=== PATIENT | female | born 2000 | race Caucasian/White ===

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

== ENCOUNTER 2024-01-08 11:38 | Outpatient (CLI) | payer BC, SELFPAY ==
--- OUTSIDE RECORDS SUMMARY | 2024-01-09 10:15 | XMS_ITS | Clinical Summary ---
Author Organization [facility] Address [address] [place] [address] Care Team Providers Care Bone Worker Name Role Phone Clinic, [facility] Primary Care Provider Allergies Active Allergy Reactions Criticality Noted Date Comments Codeine 08/25/2009 itch Latex 02/13/2017 Shrimp 07/11/2019 Medications Medication Sig Dispensed Refills Start Date End Date Status norgestim-eth estrad triphasic (ORTHO TRI-CYCLEN) 0.18/0.215/0.25 MG-35 MCG tablet TAKE 1 TABLET BY MOUTH DAILY 09/19/2018 Active sertraline (ZOLOFT) 25 MG tabletIndications:A nxiety Take 1 tablet by mouth daily at 2 pm 07/20/2022 Active levonorgestrel (KYLEENA) 19.5 MG IUD 1 each by Intrauterine route once Active Active Problems Problem Noted Date Diagnosed Date Concussion without loss of c onsciousness, subsequent encounter 07/26/2019 Seasonal allergies Immunizations Name Administration Dates Next Due DTAP (<7y) 07/19/2006, 4,2002,2002, HEPA 01/20/2008,03/21/2007 HIB (PRP-T) 08/03/2003,2002,2002 HepB 02/25/2003,2002,2002 Influenza (IIV3) PF 02/17/2009 MMR 07/19/2006,05/06/2003 Meningococcal (Menomune??) 01/05/2014 Poliovirus, inactivated (IPV) 07/19/2006, 003,2002,2002 TDAP (Adacel,Boostrix) 01/05/2014 Varicella 04/08/2007,02/25/2003 Family History Medical History Relation Comments Family History Negative Father Family History Negative Mother Family History Negative Sister 1 Relation Status Comments Father Alive Mother Alive Sister Social History Tobacco Use Types Packs/Day Years Used Date Smoking Tobacco: Never Smokeless Tobacco: Never Tobacco Cessation:Counseling Given: Not Answered Comments:non smoking house Alcohol Use Standard Drinks/Week Comments No 0 (1 standard drink = 0.6 oz pur e alcohol) Adolescent Education Answer Date Record ed Getting School Help Needed Not on file 03/21 Sex and Gender Information Value Date Recorded Sex Assigned at Not on file Gender Identity Not on file Sexual Orientation Not on file Last Filed Vital Signs Vital Sign Reading Time Taken Comments Blood Pressure 107/66 07/28/2022 11:26 AM CERTIFIED NEURODIAGNOSTIC TECHNOLOGIST Pulse 80 07/28/2022 11:26 AM CERTIFIED NEURODIAGNOSTIC TECHNOLOGIST Temperature 37.3 ??C (99.1 ??F) 07/28/2022 11:[address] Respiratory Rate 20 07/28/2022 11:26 AM CERTIFIED NEURODIAGNOSTIC TECHNOLOGIST Oxygen Saturation 97% 07/28/2022 11:26 AM CERTIFIED NEURODIAGNOSTIC TECHNOLOGIST Inhaled Oxygen Concentration - - Weight 51.3 kg (113 lb) 07/26/2019 10:26 AM CERTIFIED NEURODIAGNOSTIC TECHNOLOGIST Height 160 cm (5' 3) 07/26/2019 10:26 AM CERTIFIED NEURODIAGNOSTIC TECHNOLOGIST Body Mass Index 20.02 07/26/2019 10:26 AM CERTIFIED NEURODIAGNOSTIC TECHNOLOGIST Plan of Treatment Health Maintenance Due Date Last Done Comments ADVANCE CARE PLANNING 2002 ANNUAL REVIEW OF HM ORDERS 2002 CHLAMYDIA SCREENING 2002 YEARLY PREVENTIVE VISIT 2002 HIV SCREENING 2017 HPV IMMUNIZATION (1 - 3-dose series) 2017 HEPATITIS C SCREENING 02/07/2020 COVID-19 Vaccine ( season) 2023 03/01/2021, 02/08/2021 PAP 2023 PHQ-2 (once per calendar year) 2023 DTAP/TDAP/TD IMMUNIZATION (7 - Td or Tdap) 01/06/2024 01/05/2014, 07/19/2006, 07/19/2006, Additional history exists INFLUENZA VACCINE (#1) 2024 0, 04/13/2010, 02/17/2009, Additional history exists HEPATITIS B IMMUNIZATION Completed 003, 02/25/2003, 02/25/2003, Additional history exists IPV IMMUNIZATION Completed 07/19/2006, , 2002, Additional history exists MENINGITIS IMMUNIZATION Aged Out 10/06/19 22, 01/05/2014, 01/05/2014, Additional history exists No longer eligible based on patient's age to complete this topic Pneumococcal Vaccine: Pediatrics (0 to 5 Years) and At-Risk Patients (6 to 64 Years) Aged Out No longer eligible based on patient's age to complete this topic RSV MONOCLONAL ANTIBODY Aged Out No l onger eligible based on patient's age to complete this topic Care Teams Bone Worker Relationship Specialty Start Date End Date Clinic, [facility] [address] [facility] [place] [address] PCP - General 07/08/19
--- OUTSIDE RECORDS SUMMARY | 2024-01-09 10:15 | XMS_ITS | Clinical Summary ---
Author Organization [facility] Address [address] [place] [address] Care Team Providers Care Passenger Coach Driver Name Role Phone Needs Pcp, Assignment Primary Care Provider [phone] Source Comments You are receiving this document as you are listed as the primary care provider,follow-up provider, or the patient has been referred to you for consultation.This is in compliance with the Medicare and[facility] EHR Incentive Program,which states Providers who transition their patient to another setting of careor provider of care or refers their patient to another provider of care shouldprovide summary care record for each transition of care or referral. [facility]out Allergies Active Allergy Reactions Criticality Noted Date Comments Codeine Itching 06/24/2015 Latex 02/13/2017 Medications Medication Sig Dispensed Refills Start Date End Date Status ibuprofen (AKA ADVIL) 100 MG/5ML suspension Take by mouth 3 TIMES A WEEK PRN for Pain. 06/24/2015 Active triamcinolone acetonide (KENALOG) 0.1 % ointmentIndications :Acne vulgaris Apply topically two times a day. To dry skin spots on body 15 g 1 07/10/2017 Active Acetylcysteine (N-NMTYGF-A-CYSTEIN E OR) Active hydrocortisone 2.5 % ointmentIndications :Dermatitis Apply to eczema twice daily until resolved. Ok to use on face, armpits and groin. 30 g 3 03/11/2019 Active ISOtretinoin (AMNESTEEM) 20 MG capsule Take 1 Capsule by mouth daily. With dinner. Ipledge [id number] 30 Capsule 05/20/2019 Active TRI-SPRINTEC 0.18/0.215/0.25 MG-35 MCG tabletIndications:A cne vulgaris TAKE 1 TABLET BY MOUTH DAILY 84 Tablet 3 11/17/2019 Active Active Problems No known active problems Social History Tobacco Use Types Packs/Day Years Used Date Smoking Tobacco: Never Smokeless Tobacco: Never Sex and Gender Information Value Date Recorded Sex Assigned at Not on file Gender Identity Not on file Sexual Orientation Not on file Last Filed Vital Signs Vital Sign Reading Time Taken Comments Blood Pressure - - Pulse - - Temperature 37.2 ??C (99 ??F) 10/13/2017 6:12 PM CDT Respiratory Rate - - Oxygen Saturation - - Inhaled Oxygen Concentration - - Weight 49.9 kg (110 lb) 12/31/2018 10:04 AM CDT Height 160 cm (5' 3) 12/13/2018 10:56 AM CDT Body Mass Index - - Plan of Treatment Health Maintenance Due Date Last Done Comments Cervical Cancer Screening Due 2002 Chlamydia 2002 Hep C Screening (Preventive Services) 2002 HPV Vaccine (1 - 3-dose series) 2017 HIV Screening (Preventive Services) 2018 Adult Preventive Visit 02/07/2020 HepB (1) 2021 COVID-19 Vaccine ( season) 2023 03/01/2021, 02/08/2021 DTaP/Tdap/Td (7 - Tdap) 01/06/2024 01/06/20 14, 07/19/2006, 08/03/2003, Additional history exists Influenza (#1) 2024 04/13/2010, 02/17/2009 Zoster/Shingles (1 of 2) 02/07/2052 Hib Completed 08/03/2003, 02/03, 2002, Additional history exists IPV (Polio) Completed 07/19/2006, 11/2002, 2002, Additional history exists HepA Completed 01/20/2008, 03/21/2007 MCV4 Aged Out 01/05/2014 No longer eligi ble based on patient's age to complete this topic Pneumococcal Aged Out No longer eligi ble based on patient's age to complete this topic Care Teams Passenger Coach Driver Relationship Specialty Start Date End Date Needs Pcp, [place] [address] PCP - General 12/14/16
--- OUTSIDE RECORDS SUMMARY | 2024-01-09 10:15 | XMS_ITS | Patient Health Record ---
Author Organization [facility] Address [address] [place] [address] Care Team Providers Care Deaf Interpreter Name Role Phone None, No PCP Primary Care Provider Dianna Marques Unavailable Allergies Allergen (clinical drug ingredient) Drug/Non Drug Allergy documented on EMR Reaction Allergy Type Onset Date Status codeine Codeine Unknown Drug Allergy Active Reason For Referral No Information Medications Medication SIG (Take, Route, Frequency, Duration) Notes Start Date End Date Status Sertraline HCl 25 MG 1 tablet Orally Once a day Active Norgestim-Eth Estrad Triphasic 0.18/0.215/0.25 MG-35 MCG 1 tablet Orally Once a day Not-Taking Kyleena 19.5 MG as directed Intrauterine inserted in 2020 Active Social History Tobacco Use: Social History Observation Description Date Details (start date - stop date) Never Smoker NA - NA Tobacco Use/Smoking Question Answer Notes Are you a nonsmoker Alcohol Screen (Audit-C) Question Answer Notes Did you have a drink containing alcohol in the p ast year? Yes Points 0 Interpretation Negative Problems Problem Type SNOMED Code ICD Code Onset Dates Problem Status W/U Status Risk Notes Problem Abnormal vaginal bleeding (699042571) DUB (dysfunctional uterine bleeding) (N93.8) Active confirmed Problem Irregular periods (48508219) Irregular periods (N92.6) Active confirmed Problem Anemia (284686888) Anemia (D64.9) Active confirmed Plan Of Treatment No Information Insurance Providers Payer Name Payer Address Payer Phone Subscriber Number Group Number Insured Name Patient Relationship to Insured Coverage Start Date Coverage End Date BCBS - (Client Bill) [address] [place] [address] [id number] Bere Montez Self - patient is the insured Medical (General) History Medical History History ICD Code Seasonal Allergies Nervous and Auditory Anxiety / Depression Bleeding Problems Anemia Ovarian Cysts Surgical History Surgery Date(Month/Year) tonsillectomy and adenoidectomy [place] Teeth Removed
--- OUTSIDE RECORDS SUMMARY | 2024-01-09 10:15 | XMS_ITS | Referral Summary ---
Author Organization [facility] Address [address] [place] [address] Care Team Providers Care Lift Operator Name Role Phone Clinic, [facility] Primary Care Provider Allergies Active Allergy [...] 07/19/2006, 003,2002,2002 TDAP (Adacel,Boostrix) 01/05/2014 Varicella 04/08/2007,02/25/2003 Social History Tobacco Use Types Packs/Day Years [...] Comments Blood Pressure 107/66 07/28/2022 11:26 AM CUSTOMS COMPLIANCE SPECIALIST Pulse 80 07/28/2022 11:26 AM CUSTOMS COMPLIANCE SPECIALIST Temperature 37.3 ??C (99.1 ??F) 07/28/2022 11:[address] Respiratory Rate 20 07/28/2022 11:26 AM CUSTOMS COMPLIANCE SPECIALIST Oxygen Saturation 97% 07/28/2022 11:26 AM CUSTOMS COMPLIANCE SPECIALIST Inhaled Oxygen Concentration - - Weight 51.3 kg (113 lb) 07/26/2019 10:26 AM CUSTOMS COMPLIANCE SPECIALIST Height 160 cm (5' 3) 07/26/2019 10:26 AM CUSTOMS COMPLIANCE SPECIALIST Body Mass Index 20.02 07/26/2019 10:26 AM CUSTOMS COMPLIANCE SPECIALIST Plan of Treatment Not on file Care Teams Lift Operator Relationship Specialty Start Date End Date Clinic, [facility] [address] [place] [address] PCP - General 07/08/19
== END 2024-01-08 11:39 | disposition home or self-care (01) ==
LOC: NFLDREF 01-09 10:13
PROVIDERS: PCP Family Medicine; Referring Provider Family Medicine; Visit Provider Physician Assistant
DX: R30.0 Dysuria (principal); N39.0 Urinary tract infection, site not specified
CPT/HCPCS: 87086

== ENCOUNTER 2024-05-24 21:42 | Emergency (ER) | payer BC, SELFPAY ==
--- OUTSIDE RECORDS SUMMARY | 2024-05-24 21:45 | XMS_ITS ---
Author Organization [facility] Address [address] [place] [address] Care Team Providers Care Clinical Application Specialist Name Role Phone None, No PCP Primary Care Provider Unavailabl Dianna Rivas Unavailable Josse Andresvasyl Unavailable [phone] REASON FOR VISIT Check ovarian Cysts Medications Medication SIG (Take, Route, Frequency, Duration) Notes Start Date End Date Status Sertraline HCl 25 MG 1 tablet Orally Once a day Active Norgestim-Eth Estrad Triphasic 0.18/0.215/0.25 MG-35 MCG 1 tablet Orally Once a day A ctive Kyleena 19.5 MG as directed Intrauterine Active Encounters Encounter Location Date Provider Diagnosis [facility] [address] [place] [address] 01/03/2023 Jered Andres Pelvic pain R10.2 Assessments Encounter Date Diagnosis (ICD Code) Assessment Notes Treatment Notes Treatment Clinical Notes Section Notes 01/03/2023 Pelvic pain (ICD-10 - R10.2) Plan Of Treatment No Information Progress Notes * Bere DIAZDOB: [birth year] (22 yo F)Acc No.[id number]:01/03/2023 Patient: Raudel haynesBere Provider: Amy Andres MD :2000 A ge:22 Y S ex:Female Date:01/03/2023 Address: [facility] Pcp:No PCP None Subjective: * Chief Complaints: * 1 . Check ovarian Cysts. * Medical History: * Medications: T aking Sertraline HCl 25 MG Tablet 1 tablet Orally Once a day, Taking Norgestim- Eth Estrad Triphasic 0.18/0.215/0.25 MG-35 MCG Tablet 1 tablet Orally Once a day, Taking Kyleena 19.5 MG Intrauterine Device as directed Intrauterine Objective: Assessment: * Assessment: 1. P elvic pain - R10.2 (Primary) Plan: * Treatment: * Procedure Codes: 7 6856 US EXAM, PELVIC, COMPLETE,FULL ATM TECHNICIAN, 08624 TRANSVAGINAL US, NON-OB * Images: Billing Information: * Visit Code: * Procedure Codes: 73658 US EXAM, PELVIC, COMPLETE,FULL ATM TECHNICIAN. 79432 TRANSVAGINAL US, NON-OB. * Sign off status: Completed true * Provider: Amy Andres MD Date: 0 01/03/2023 Generated for Kimi tolbert/Maureen/Sarahi on: 07/25/2023 09:45 PM CHILDRENS CLUB ATTENDANT
--- OUTSIDE RECORDS SUMMARY | 2024-05-24 21:45 | XMS_ITS ---
Author Organization [facility] Address [address] [place] [address] Care Team Providers Care Commercial Housekeeper Name Role Phone None, No PCP Primary Care Provider UnavailDianna Lr Unavailable [phone] Jered Andres Unavailable [phone] Allergies Allergen (clinical drug ingredient) Drug/Non Drug Allergy documented on EMR Reaction Allergy Type Onset Date Status codeine Codeine Unknown Drug Allergy Active REASON FOR VISIT MASON APPRENTICE Consult: Ovarian Cysts / US Prior PHQ9, BC: Kyleena, inserted 2020. LMP: 11/29/22., Sx: Pt iscurrently not in any pain. Pt thinks shes been getting ovarian cysts for the past 2-3 years. Thinksone ruptured last year., Seek care elsewhere: No., [facility] Medications Medication SIG (Take, Route, Frequency, Duration) Notes Start Date End Date Status Norgestim-Eth Estrad Triphasic 0.18/0.215/0.25 MG-35 MCG 1 tablet Orally Once a day Not-Taking Sertraline HCl 25 MG 1 tablet Orally Once a day Active Kyleena 19.5 MG as directed Intrauterine inserted [...] Status Risk Notes Problem Abnormal vaginal bleeding (030351862) DUB (dysfunctiona l uterine bleeding) (N93.8) Active confirmed Problem Anemia (148846625) Anemia (D64.9) Active confirmed Vital Signs Blood pressure systolic 98 mm Hg 01/04/20 23 Blood pressure diastolic 62 mm Hg 023 Height 63 in 01/03/2023 Weight 103.8 lbs 01/03/2023 BMI 18.39 kg/m2 01/03/2023 Encounters Encounter Location Date Provider Diagnosis [facility] [address] [place] [address] 01/03/2023 Jered Andres DUB (dysfunctional uterine bleeding) N93.8 and Anemia D64.9 Assessments Encounter Date Diagnosis (ICD Code) Assessment Notes Treatment Notes Treatment Clinical Notes Section Notes 01/03/2023 DUB (dysfunctional uterine bleeding) (ICD-10 - N93.8) patient may need to consider removing IUD if bleeding becomes more prolific 01/03/2023 Anemia (ICD-10 - D64.9) patient may need to consider removing IUD if bleeding becomes more prolific 01/03/2023 Other 30 minutes spen t on the date of the encounter doing chart review, history and exam, documentation and further activities per the note patient may need to consider removing IUD if bleeding becomes more prolific Plan Of Treatment Treatment Notes Assessment Notes Other 30 minutes spent on the date of the encounter doing chart review, history and exam, documentation and further activities per the note Progress Notes * Bere DIAZDOB: [birth year] (22 yo F)Acc No.[id number]:01/03/2023 Patient: Bere Parker Provider: Amy Andres MD :2000 A ge:22 Y S ex:Female Date:01/03/2023 Address:[address] [place], [place] [id number] Pcp:No PCP None Subjective: * Chief Complaints: * N P Consult: Ovarian Cysts / US Prior PHQ9BC: Kyleena, inserted 2020. LMP: 11/29/22.Sx: Pt is currently not in any pain. Pt thinks shes been getting ovarian cysts for the past 2-3 years. Thinks one ruptured last year.Seek care elsewhere: [place] [place] * HPI: D epression Screening: PHQ-9 L ittle interest or pleasure in doing things?Not at all F eeling down, depressed, or hopeless N ot at all T rouble falling or staying asleep, or sleeping too much M ore than half the days F eeling tired or having little energy M ore than half the days P oor appetite or overeating N ot at all F eeling bad about yourself or that you are a failure, or have let yourself or your family down M ore than half the days T rouble concentrating on things, such as reading the newspaper or watching television S everal days M oving or speaking so slowly that other people could have noticed; or the opposite, being so fidgety or restless that you have been moving around a lot more than usual N ot at all T houghts that you would be better off or of hurting yourself in some way N ot at all T otal Score 7 I nterpretation M ild Depression 22-year-old patient seen for irregular spotting. She had menarche at age 17. She had very heavy cycles and a kyleena IUD was placed. She was amenorrhea for one year. Of note she has a history of an amiable one year ago or hemoglobin was 11.9. She is no red meat and has been on no iron supplements. She is now bleeding lightly for seven days. 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 B ir Control: Diane lujan, inserted in 2020. S exual Activity C urrently sexually active. S exually Tranmitted Disease (STD) N one. A bnormal Pap Smear N ever Had One. * OB History: G PAL: G 0. * Surgical History: t onsillectomy and adenoidectomy [place] Teeth Removed * Hospitalization/Major Diagno stic Procedure: D enies Past Hospitalization * Family History: Breast Cancer: Maternal Grandmother H ypertension: Father. * Social History: T obacco Use: T obacco Use/Smoking A re you a n onsmoker D rugs/Alcohol: D rugs H ave you used drugs other than those for medical reasons in the past 12 months? N o Alcohol Screen (Audit-C) D id you have a drink containing alcohol in the past year? Y es P oints 0 I nterpretation N egative Caffeine I ntake: 1 drink, daily Do you smoke marijuana?: Denies. Do you drink alcohol?: 3 drinks, 3 times monthly. * Medications: T akingSertraline HCl 25 MG Tablet 1 tablet Orally Once a dayKyleena 19.5 MG Intrauterine Device as directed Intrauterine , Notes: inserted in 2020Taking Sertraline HCl 25 MG Tablet 1 tablet Orally Once a dayTaking Kyleena 19.5 MG Intrauterine Device as directed Intrauterine , Notes: inserted in 5663Mhp-YqvzpoJbdszuync-Ehl Estrad Triphasic 0.18/0.215/0.25 MG-35 MCG Tablet 1 tablet Orally Once a dayMedication List reviewed and reconciled with the patientNot-Taking Norgestim-Eth Estrad Triphasic 0.18/0.215/0.25 MG-35 MCG Tablet 1 tablet Orally Once a dayMedication List reviewed and reconciled with the patient * Allergies: Rashard silverio[Allergies Verified] Objective: * Vitals: H t: 63 in, Wt:103.8 lbs, BP:98/62 mm Hg, BMI:18.39 Index, Wt-k.08 kg. * Examination: * General Examination: GENERAL APPEARANCE: i n no acute distress, well developed, well nourished. ABDOMEN: n ormal, bowel sounds present, soft, nontender, nondistended. EDM OPERATOR: l abia without lesions or masses, vaginal mucosa pink, no lesions, cervix without lesions, nontender, uterus anteverted, non tender, adnexa nontender, perineum within normal limits, anus within normal limits. NEUROLOGIC: n onfocal, motor strength normal upper and lower extremities, sensory exam intact. PSYCH: a lert, oriented, judgement and insight good, mood/affect full range, speech clear. n ormal general and EDM OPERATOR exam IUD strings present. Assessment: * Assessment: 1. D UB (dysfunctional uterine bleeding) - N93.8 (Primary) 2 . A nemia - D64.9 patient may need to consider removing IUD if bleeding becomes more prolific. Plan: * Treatment: * Procedure Codes: 9 6127 BRIEF EMOTIONAL/BEHAV ASSMT * Preventive Medicine: YOUR PREVENTIVE WELLNESS PLAN: B reast Cancer Screening (Mammogram): My last mammogram was done on: U nder 42yrs C ervical Cancer Screening (Pap Smear): My last Pap smear was done on: U nder 23 years old O steoporosis Screening (Bone Density Measurement): My last bone density was done on: U nder 67yr C olorectal Cancer Screening: Last Done Colonoscopy U nder 47yr D epression Screening: Screening for depression was last done on: 0 01/03/2023 * Images: Billing Information: * Visit Code: 03685 Office Visit, New Pt., Level 3. * Procedure Codes: 66482 BRIEF EMOTIONAL/BEHAV ASSMT. * Sign off status: Completed true * Provider: Amy Andres MD Date: 0 01/03/2023 Generated for Kimi tolbert/Maureen/Sarahi on: 07/25/2023 09:45 PM ONLINE MARKETING STRATEGIST History and Physical Notes * HPI (History of Present Illness) Category Sub-Category Detail Notes Category Not es Depression Screening PHQ-9 Little inte rest or pleasure in doing things: Not at all 22-year-old patient seen for irregular spotting. She had menarche at age 17. She had very heavy cycles and a kyleena IUD was placed. She was amenorrhea for one year. Of note she has a history of an amiable one year ago or hemoglobin was 11.9. She is no red meat and has been on no iron supplements. She is now bleeding lightly for seven days. Feeling down, depressed, or hopeless: No t at all Trouble falling or staying a sleep, or sleeping too much: More than half the days Feeling tired or having little energy: M ore than half the days Poor appetite or overeating: Not at all Feeling bad about yourself o r that you are a failure, or have let yourself or your family down: More than half the days Trouble concentrating on thi ngs, such as reading the newspaper or watching television: Several days Moving or speaking so slowly that other people could have noticed; or the opposite, being so fidgety or restless that you have been moving around a lot more than usual: Not at all Thoughts that you would be b hilary off or of hurting yourself in some way: Not at all Total Score: 7 Interpretation: Mild Depression Examination Category Sub-Category Detail Notes Category Not es *General Examination GENERAL APPEARANCE: in no acute distress, well developed, well nourished normal general and EDM OPERATOR exam IUD strings present ABDOMEN: normal, bowel sounds present, soft, nontender, nondistended NEUROLOGIC: nonfocal, motor stre ngth normal upper and lower extremities, sensory exam intact PSYCH: alert, oriented, min gement and insight good, mood/affect full range, speech clear EDM OPERATOR: labia without lesion s or masses, vaginal mucosa pink, no lesions, cervix without lesions, nontender, uterus anteverted, non tender, adnexa nontender, perineum within normal limits, anus within normal limits
--- OUTSIDE RECORDS SUMMARY | 2024-05-24 21:45 | XMS_ITS ---
Author Organization [facility] Address [address] [place] [address] Care Team Providers Care Sock Lining Examiner Name Role Phone None, No PCP Primary Care Provider UnavailDianna Lr Unavailable Jered Andres Unavailable [phone] Results Component Value Reference Range Notes CBC (INCLUDES DIFF/PLT) Reviewed date:01/04/2023 09:17:40 AM Interpretation: Performing Lab:BRIANNE, [facility] [address] [facility] Hospital[facility] AlonsoeIL[address] Raúl Brooks Notes/Report: WHITE BLOOD CELL COUNT 4.3 3.8-10.8 Thousand/ uL RED BLOOD CELL COUNT 4.59 3.80-5.10 Million/uL HEMOGLOBIN 13.7 11.7-15.5 g/dL HEMATOCRIT 41.9 35.0-45.0 % MCV 91.3 80.0-100.0 fL MCH 29.8 27.0-33.0 pg MCHC 32.7 32.0-36.0 g/dL RDW 11.8 11.0-15.0 % PLATELET COUNT 206 140-400 Thousand/uL MPV 11.2 7.5-12.5 fL ABSOLUTE NEUTROPHILS [phone] cells/uL ABSOLUTE LYMPHOCYTES 9944 107-5441 cells/uL ABSOLUTE MONOCYTES 361 200-950 cells/uL ABSOLUTE EOSINOPHILS 99 15-500 cells/uL ABSOLUTE BASOPHILS 52 0-200 cells/uL NEUTROPHILS 43.8 LYMPHOCYTES 44.3 MONOCYTES 8.4 EOSINOPHILS 2.3 BASOPHILS 1.2 ESTRADIOL Reviewed date:01/04/2023 09:15:30 AM Interpretation: Performing Lab:BRIANNE [facility]-[address], [place] MoFiqkWG[address] Raúl Brooks Notes/Report: ESTRADIOL 139 Reference Range Follicular Phase: 19-144 Mid-Cycle: 64-357 Luteal Phase: 56-214 Postmenopausal: < or = 31 Reference range established on post-pubertal patient population. No pre-pubertal reference range established using this assay. For any patients for whom low Estradiol levels are anticipated (e.g. males, pre-pubertal children and hypogonadal/post-menopausal females), the [facility] Estradiol, Ultrasensitive, LCMSMS assay is recommended (order code 73006). Please note: patients being treated with the drug fulvestrant (Faslodex(R)) have demonstrated significant interference in immunoassay methods for estradiol measurement. The cross reactivity could lead to falsely elevated estradiol test results leading to an inappropriate clinical assessment of estrogen status. [facility] order code 32150-Ttzgpwnat, Ultrasensitive LC/MS/MS demonstrates negligible cross reactivity with fulvestrant. PROGESTERONE Reviewed date:01/04/2023 09:15:43 AM Interpretation: Performing Lab:BRIANNE [facility]-[address], [place] GabwBE[address] Raúl Brooks Notes/Report: PROGESTERONE 11.5 Reference Ranges Female Follicular Phase < 1.0 Luteal Phase 2.6-21.5 Post menopausal < 0.5 1st Trimester 4.1-34.0 2nd Trimester 24.0-76.0 3rd Trimester 52.0-302.0 FERRITIN Reviewed date:01/04/2023 09:16:04 AM Interpretation: Performing Lab:Jerzy DECKER-[address]ef[address], [place] CallawayAvhdYH[address] Raúl Brooks Notes/Report: FERRITIN 10 16-154 ng/mL T4, FREE Reviewed date:01/04/2023 09:16:53 AM Interpretation: Performing Lab:Jerzy DECKER [address], [place] BartlettLejwTS[address] Raúl Brooks Notes/Report: T4, FREE 1.1 0.8-1.4 ng/dL TSH Reviewed date:01/04/2023 09:16:34 AM Interpretation: Performing Lab:BRIANNE [facility] [address]iny-[address], [facility] HospitalYfwbFG[address] Raúl Jass Brooks Notes/Report: TSH 1.22 Reference Range > or = 20 Years 0.40-4.50 Ranges First trimester 0.26-2.66 Second trimester 0.55-2.73 Third trimester 0.43-2.91 TESTOSTERONE, FREE Reviewed date:01/10/2023 08:16:08 AM Interpretation: Performing Lab:Z3E, [facility] [address], [address], QkhiesmknfBR[address] Janusz Graff MD Notes/Report: TESTOSTERONE, FREE 2.2 0.2-5.0 pg/mL (Note) The concentration of free testosterone is derived from a mathematical model using total testosterone by LCMSMS, sex hormone binding globulin and albumin. This test was developed and its analytical performance characteristics have been determined by [facility]. It has not been cleared or approved by the FDA. This assay has been validated pursuant to the CLIA regulations and is used for clinical purposes. [facility] [address] [address],[address] [facility] [address] Janusz rGaff MD REASON FOR VISIT Labs Medications Medication SIG (Take, Route, Frequency, Duration) Notes Start Date End Date Status Sertraline HCl 25 MG 1 tablet Orally Once a day Active Norgestim-Eth Estrad Triphasic 0.18/0.215/0.25 MG-35 MCG 1 tablet Orally Once a day Not-Taking Kyleena 19.5 MG as directed Intrauterine inserted in 2020 Active Problems Problem Type SNOMED Code ICD Code Onset Dates Problem Status W/U Status Risk Notes Problem Irregular periods (79473624) Irregular periods (N92.6) Active confirmed Encounters Encounter Location Date Provider Diagnosis [facility] [address] [place] [address] 01/03/2023 Edward Irwin Irregular periods N92.6 and Anemia, unspecified D64.9 Assessments Encounter Date Diagnosis (ICD Code) Assessment Notes Treatment Notes Treatment Clinical Notes Section Notes 01/03/2023 Irregular periods (ICD-10 - N92.6) 01/03/2023 Anemia, unspecified (ICD-10 - D64.9) Plan Of Treatment No Information Progress Notes * Bere MONTEZDOB: [birth year] (22 yo F)Acc No.[id number]:01/03/2023 Patient: Bere Parker Provider: Amy Andres MD :2000 A ge:22 Y S ex:Female Date:01/03/2023 Address:[address] [place], [place] [id number] Pcp:No PCP None Subjective: * Chief Complaints: * L abs * Medical History: * Medications: T akingSertraline HCl 25 MG Tablet 1 tablet Orally Once a dayKyleena 19.5 MG Intrauterine Device as directed Intrauterine , Notes: inserted in 2020Taking Sertraline HCl 25 MG Tablet 1 tablet Orally Once a dayTaking Kyleena 19.5 MG Intrauterine Device as directed Intrauterine , Notes: inserted in 1655Psy-OxdqciCwowcoxyg-Xup Estrad Triphasic 0.18/0.215/0.25 MG-35 MCG Tablet 1 tablet Orally Once a dayNot-Taking Norgestim-Eth Estrad Triphasic 0.18/0.215/0.25 MG-35 MCG Tablet 1 tablet Orally Once a day Objective: Assessment: * Assessment: 1. I rregular periods - N92.6 2 . A nemia, unspecified - D64.9 Plan: * Treatment: Value Reference Range W RITA BLOOD CELL COUNT 4.3 3.8-10.8 - Thousan d/uL * R ED BLOOD CELL COUNT 4.59 3.80-5.10 - Million/ uL * H EMOGLOBIN 13.7 11.7-15.5 - g/dL * H EMATOCRIT 41.9 35.0-45.0 - % * M CV 91.3 80.0-100.0 - fL * M CH 29.8 27.0-33.0 - pg * M CHC 32.7 32.0-36.0 - g/dL * R DW 11.8 11.0-15.0 - % * P LATELET COUNT 206 140-400 - Thousand/u L * N EUTROPHILS 43.8 - % * A BSOLUTE NEUTROPHILS 1883 2878-6220 - cells/uL * L YMPHOCYTES 44.3 - % * A BSOLUTE LYMPHOCYTES [phone] - cells/uL * M ONOCYTES 8.4 - % * A BSOLUTE MONOCYTES 361 200-950 - cells/uL * E OSINOPHILS 2.3 - % * A BSOLUTE EOSINOPHILS 99 15-500 - cells/uL * B ASOPHILS 1.2 - % * A BSOLUTE BASOPHILS 52 0-200 - cells/uL * M PV 11.2 7.5-12.5 - fL ?LAB: ESTRADIOL* Value Reference Range E STRADIOL 139 - pg/mL ?LAB: PROGESTERONE* Value Reference Range P ROGESTERONE 11.5 - ng/mL ?LAB: FERRITIN ?LAB: T4, FREE* Value Reference Range T 4, FREE 1.1 0.8-1.4 - ng/dL ?LAB: TSH* Value Reference Range T SH 1.22 - mIU/L ?LAB: TESTOSTERONE, FREE2.?Anemia, unspecified?LAB: CBC (INCLUDES DIFF/PLT)* Value Reference Range W RITA BLOOD CELL COUNT 4.3 3.8-10.8 - Thousan d/uL * R ED BLOOD CELL COUNT 4.59 3.80-5.10 - Million/ uL * H EMOGLOBIN 13.7 11.7-15.5 - g/dL * H EMATOCRIT 41.9 35.0-45.0 - % * M CV 91.3 80.0-100.0 - fL * M CH 29.8 27.0-33.0 - pg * M CHC 32.7 32.0-36.0 - g/dL * R DW 11.8 11.0-15.0 - % * P LATELET COUNT 206 140-400 - Thousand/u L * N EUTROPHILS 43.8 - % * A BSOLUTE NEUTROPHILS 1883 2822-0506 - cells/uL * L YMPHOCYTES 44.3 - % * A BSOLUTE LYMPHOCYTES 7416 348-0169 - cells/uL * M ONOCYTES 8.4 - % * A BSOLUTE MONOCYTES 361 200-950 - cells/uL * E OSINOPHILS 2.3 - % * A BSOLUTE EOSINOPHILS 99 15-500 - cells/uL * B ASOPHILS 1.2 - % * A BSOLUTE BASOPHILS 52 0-200 - cells/uL * M PV 11.2 7.5-12.5 - fL ?LAB: ESTRADIOL* Value Reference Range E STRADIOL 139 - pg/mL ?LAB: PROGESTERONE* Value Reference Range P ROGESTERONE 11.5 - ng/mL ?LAB: FERRITIN ?LAB: T4, FREE* Value Reference Range T 4, FREE 1.1 0.8-1.4 - ng/dL ?LAB: TSH* Value Reference Range T SH 1.22 - mIU/L ?LAB: TESTOSTERONE, FREE * Procedure Codes: 8 5025 COMPLETE CBC W/AUTO DIFF WBC, Modifiers: 90 79071 ASSAY THYROID STIM HORMONE, Modifiers: 90 23103 ASSAY OF FREE THYROXINE, Modifiers: 90 33141 ASSAY OF ESTRADIOL, Modifiers: 90 42146 ASSAY OF TESTOSTERONE, Modifiers: 90 36329 ASSAY OF FERRITIN, Modifiers: 90 93026 ASSAY OF PROGESTERONE, Modifiers: 90 * Images: Billing Information: * Visit Code: * Procedure Codes: 58490 COMPLETE CBC W/AUTO DIFF WBC. Modifiers: 90 99500 ASSAY THYROID STIM HORMONE. Modifiers: 90 84754 ASSAY OF FREE THYROXINE. Modifiers: 90 50814 ASSAY OF ESTRADIOL. Modifiers: 90 39072 ASSAY OF TESTOSTERONE. Modifiers: 90 34485 ASSAY OF FERRITIN. Modifiers: 90 93067 ASSAY OF PROGESTERONE. Modifiers: 90 * Sign off status: Completed Addendum: * true * Provider: Amy Andres MD Date: 0 01/03/2023 Generated for Lashai ng/Faxing/eTransmitting on: 1 07/25/2023 09:44 PM SUPER[employer]OR [employer]
[2024-05-24 21:46] VITALS: BP 117/79; PULSE 122; RESP 16; TEMP 37.5; O2SAT 97; BMI 19.8
--- OUTSIDE RECORDS SUMMARY | 2024-05-24 21:46 | XMS_ITS | Patient Health Record ---
Author Organization [facility] Address [address] [place] [address] Care Team Providers Care Cable Mock Up Assembler Name Role Phone None, No PCP Primary [...] Status Risk Notes Problem Abnormal vaginal bleeding (540543129) DUB (dysfunctional uterine bleeding) (N93.8) Active confirmed Problem Irregular periods (02094802) Irregular periods (N92.6) Active confirmed Problem Anemia (229316097) Anemia (D64.9) Active confirmed Plan Of Treatment No Information Insurance Providers Payer Name Payer Address Payer Phone Subscriber Number Group Number Insured Name Patient Relationship to Insured Coverage Start Date Coverage End Date [employer] - (Client Bill) [address] [place] [address] [id number] Bere Montez Self - patient is the insured Medical (General) History Medical History History ICD Code Seasonal Allergies Nervous and Auditory Anxiety / Depression Bleeding Problems Anemia Ovarian Cysts Surgical History Surgery Date(Month/Year) tonsillectomy and adenoidectomy [place] Teeth Removed
--- NOTE | 2024-05-24 21:58 | ED.GENADULT ---
HPI - General Adult General Chief complaint: Nausea/Vomiting Stated complaint: fever, nausea Time Seen by Provider: 05/24/24 21:53 History of Present Illness HPI narrative: Patient is a 24-year-old woman who presents with 24 hours of nausea vomiting diarrhea. She has upper abdominal pain which is primary in the left upper quadrant. She has had no blood in her stool or vomit. She states that she is not . She has had no abdominal surgery previously. She has had no fevers chills night sweats cough shortness of breath. Patient is otherwise in reasonable health. Related Data Allergies Allergy/AdvReac Type Severity Reaction Status Date / Time adhesive Allergy Intermediate Rash Verified 01/08/24 11:32 codeine Allergy Intermediate generalized Verified 01/08/24 11:32 itch Wheat bran Allergy Mild stomach Uncoded 01/08/24 11:32 issues Review of Systems Status of ROS: Reports: 10 or more systems reviewed and unremarkable except as noted in History and below [facility] Medical History Menorrhagia ?N92.0 - Excessive and frequent menstruation with regular cycle (ICD-10) Iron deficiency anemia ?D50.9 - Iron deficiency anemia, unspecified (ICD-10) Laceration of left hand (04/2017) ?S61.412A - Laceration without foreign body of left hand, initial encounter (ICD-10) Infected pierced face ?S01.83XA - Puncture wound without foreign body of other part of head, initial encounter (ICD-10) ?L08.9 - Local infection of the skin and subcutaneous tissue, unspecified (ICD-10) Surgical History History of tonsillectomy and adenoidectomy (02/12/09) ?Z90.89 - Acquired absence of other organs (ICD-10) Family History Mother Asthma Hyperlipidemia Social History Narrative: nonsmoker Smoking Status: Never smoker Exam Narrative: Exam Narrative: EXAM GENERAL: Patient appears comfortable and well. EYES: No scleral icterus. LYMPH: No supraclavicular or cervical lymphadenopathy. SKIN: Visible skin seen during exam normal or with benign process only. EXT: No dependent lower extremity pedal edema. HEART: Regular rate and rhythm with no murmurs, rubs, or gallops. LUNGS: Clear to auscultation bilaterally with no crackles or wheezes. ABD: Soft, non tender, non distended. PSYCH: Good eye contact, speech is not pressured. Const: Vital Signs, click to edit/add: Vital Signs - 24 hr 05/24/24 21:46 Temperature 99.5 F Pulse Rate [Pulse Oximeter] 122 H Respiratory Rate 16 Blood Pressure [Ri t Upper Arm] 117/79 Pulse Oximetry 97 Oxygen Delivery Me thod Room Air Course Course ED Course: Patient seen and examined. Nitza lock placed CBC CMP lipase pending. 1 L normal saline given 4 mg of IV Zofran given. Vital Signs Vital signs: Initial Vital Signs Temperature 99.5 F 05/24/24 21:46 Temperature Source Oral 05/24/24 21:46 Pulse Rate 122 H 05/24/24 21:46 Respiratory Rate 16 05/24/24 21:46 Blood Pressure 117/79 05/24/24 21:46 Blood Pressure Mean 91 05/24/24 21:46 Blood Pressure Position Supine 05/24/24 21:46 Pulse Oximetry 97 05/24/24 21:46 Oxygen Delivery Method Room Air 05/24/24 21:46 Vital Signs Temperature 99.5 F 05/24/24 21:46 Pulse Rate 122 H 05/24/24 21:46 Respiratory Rate 16 05/24/24 21:46 Blood Pressure 117/79 05/24/24 21:46 Pulse Oximetry 97 05/24/24 21:46 Oxygen Delivery Method Room Air 05/24/24 21:46 Temperature 99.5 F 05/24/24 21:46 Pulse Rate 122 H 05/24/24 21:46 Respiratory Rate 16 05/24/24 21:46 Blood Pressure 117/79 05/24/24 21:46 Pulse Oximetry 97 05/24/24 21:46 Oxygen Delivery Method Room Air 05/24/24 21:46 Medications Administered Medications: Generic Name Dose Route Start Last Admin Trade Name Freq PRN Reason Stop Dose Admin Sodium Chloride 1,000 mls @ 1,000 mls/hr 05/24/24 21:57 05/24/24 22:14 0.9 % Sodium Chloride 1000 Ml IV 05/24/24 22:56 1,000 mls/hr .Q1H CHRISTIAN Administration Ondansetron HCl 4 mg 05/24/24 21:59 05/24/24 22:14 Ondansetron 2 Mg/Ml Inj IVP 4 mg ONCE PRN Administration Medical Decision Making MDM Narrative Medical decision making narrative: Patient is a 24-year-old woman who presents with nausea vomiting diarrhea. She improved with normal saline. I also give her 4 mg of IV Zofran. She is feeling much better. Differential diagnosis includes food poisoning gastroenteritis bowel obstruction. This time will treat her symptomatically advance her diet activity as tolerated Zofran as needed with primary care follow-up as needed. Lab Data Labs: Lab Results 05/24/24 Range/Units 22:08 WBC 6.89 (4.50-11.00) K/uL RBC 4.58 (4.00-5.20) m/uL Hgb 13.9 (12.0-16.0) gm/dL Hct 41.1 (33.0-51.0) % MCV 90 (80-100) fL MCH 30 (26-34) pg MCHC 34 (32-36) gm/dL RDW Coeff of Duglas 11.9 (11.5-15.5) % Plt Count 171 (140-440) K/uL Neut % (Auto) 88.8 H (42.0-72.0) % Lymph % (Auto) 9.1 L (20-44) % Travis % (Auto) 2.0 (0.0-11.0) % Eos % (Auto) 0.0 (0.0-7.0) % Baso % (Auto) 0.0 (0.0-3.0) % Neut # (Auto) 6.10 (1.7-7.0) K/uL Lymph # (Auto) 0.60 L (0.90-2.90) K/uL Travis # (Auto) 0.10 (0.00-0.90) K/UL Eos # (Auto) 0.00 (0.00-0.50) K/uL Baso # (Auto) 0.00 (0.00-0.30) K/uL Abs Immat Gran (auto) 0.01 (0.00-0.30) K/uL Imm/Tot Granulo (auto) 0.1 % Sodium 130 L (135-149) mmol/L Potassium 3.5 L (3.6-5.1) mmol/L Chloride 99 (96-114) mmol/L Carbon Dioxide 21 (20-32) mmol/L Anion Gap 10 (7-15) mEq/L BUN 14 (5-24) mg/dL Creatinine 0.8 (0.5-1.5) mg/dL Estimated Creat Clear 88.46 Estimated GFR 107 ml/min Glucose 90 (60-115) mg/dL Calcium 8.6 (8.4-10.6) mg/dL Total Bilirubin 1.7 H (0.1-1.5) mg/dL AST 31 (12-35) U/L ALT 13 (4-35) U/L Alkaline Phosphatase 51 (40-150) U/L Total Protein 7.3 (6.0-8.3) g/dL Albumin 4.6 (3.3-5.0) g/dL Lipase 132 (23-300) U/L Discharge Plan Discharge Clinical Impression: Gastroenteritis Patient Disposition: Home, Self-Care Condition: Stable Instructions: Gastroenteritis (ED) Additional Instructions: Zofran as directed Advanced diet as directed Limit dairy moving forward for the next few days. Tylenol Motrin Rest Fluids Activity Level: No Restrictions Discharge Diet: Regular Follow Up/Referrals: Yuri Dudley MD [Primary Care Provider] - Stand Alone Forms: MyHealth Info Instructions
[2024-05-24] MEDS: ONDANSETRON 2 MG/ML inj 4 MG IVP (22:14)
[2024-05-24] MEDS: 0.9 % SODIUM CHLORIDE 1000 ml 1,000 ML IV (22:14)
[2024-05-24 22:15] LABS: Hematocrit 41.1 % (33.0-51.0); Hemoglobin* 13.9 gm/dL (12.0-16.0); Immature Granulocytes Abs Auto 0.01 K/uL (0.00-0.30); Immature Granulocytes Pct Auto 0.1 %; Lymphocytes Percent Auto 9.1 % (20-44); Mean Corpuscular HGB Conc 34 gm/dL (32-36); Mean Corpuscular Hemoglobin 30 pg (26-34); Mean Corpuscular Volume 90 fL (80-100); Neutrophils Percent Auto 88.8 % (42.0-72.0); Platelet Count* 171 K/uL (140-440); RDW Coefficient of Variation % 11.9 % (11.5-15.5); Red Blood Count 4.58 m/uL (4.00-5.20); White Blood Count* 6.89 K/uL (4.50-11.00)
[2024-05-24 22:20] LABS: Slide Review Reflex No
[2024-05-24 22:28] LABS: Albumin* 4.6 g/dL (3.3-5.0); Chloride* 99 mmol/L (96-114)
[2024-05-24 22:29] LABS: Potassium* 3.5 mmol/L (3.6-5.1); Sodium* 130 mmol/L (135-149)
[2024-05-24 22:31] LABS: Anion Gap 10 mEq/L (7-15); Aspartate Amino Transferase* 31 U/L (12-35); Bilirubin Total* 1.7 mg/dL (0.1-1.5); Blood Urea Nitrogen* 14 mg/dL (5-24); Carbon Dioxide* 21 mmol/L (20-32); Creatinine* 0.8 mg/dL (0.5-1.5); Est. Creatinine Clearance* 88.46; Estimated Glomerular Filt Rate 107 ml/min; Total Protein* 7.3 g/dL (6.0-8.3)
[2024-05-24 22:32] LABS: Alanine Aminotransferase* 13 U/L (4-35); Alkaline Phosphatase* 51 U/L (40-150); Calcium* 8.6 mg/dL (8.4-10.6); Glucose* 90 mg/dL (60-115); Lipase* 132 U/L (23-300)
== END 2024-05-24 22:56 | disposition home or self-care (01) ==
PROVIDERS: Emergency Provider Internal Medicine; PCP Family Medicine
DX: K52.9 Noninfective gastroenteritis and colitis, unspecified (principal)
CPT/HCPCS: 36415; 80053; 83690; 85025; 96374; 99283; J2405; J7030